=== PATIENT | female | born 1975 | race Caucasian/White ===

== ENCOUNTER → 2019-11-08 | Outpatient (CLI) | payer BC, SELFPAY ==
[2019-11-03 11:10] VITALS: BMI 25.4
[2019-11-08 12:36] LABS: Bacteria 0 SEEN /hpf (None Seen); Red Blood Cells-Urine 0 SEEN /hpf (0-5); Squamous Epithelial Cells - UA 0 SEEN /hpf (5-10); White Blood Cells 0 SEEN /hpf (0-5)
[2019-11-08 15:03] LABS: Absolute Lymphocyte Count 2.59 X10^3/uL (0.83-4.51); Absolute Neutrophil Count 8.4 X10^3/uL (2.0-7.7); Basophil# 0.06 X10^3/uL; Basophil% 0.5 % (0-1); Eosinophil# 0.22 X10^3/uL; Eosinophils% 1.9 % (0-5); Hematocrit 44.8 % (37-47); Hemoglobin 14.4 g/dL (12.0-15.0); Lymphocyte # 2.59 X10^3/ul (4.0); Lymphocyte % 21.9 % (19-41); Mean Corp Hgb Conc 32.1 g/dL (32-36); Mean Corpuscular Hgb 31.1 pg (27.0-32.0); Mean Corpuscular Volume 96.8 fL (81-99); Mean Platelet Vol. 11.5 fl (6.2-12.0); Monocyte# 0.58 X10^3/uL; Monocyte% 4.9 % (0-10); NRBC Flagged by Analyzer 0 % (0-5); Neutrophil # 8.36 X10^3/uL (2.7-7.7); Neutrophil % 70.5 % (47-70); Platelet Count 142 K/mm3 (150-450); RBC Distribution Width CV 12.5 % (11.6-14.6); RBC Distribution Width SD 44.6 fl (35.1-43.9); Red Blood Count 4.63 M/mm3 (4.2-5.4); White Blood Count 11.9 K/mm3 (4.4-11.0)
[2019-11-08 15:35] LABS: Color, Urine Yellow (Yellow); Glucose, Dipstick Normal (Normal); Ketone-Dipstick Negative (Negative); Leukocyte Esterase-Dipstick 25 /ul (Negative); Nitrite-Dipstick Negative (Negative); Occult Blood-Urine 10 /ul (Negative); Protein-Dipstick Negative (Negative); Specific Gravity, Urine 1.025 (1.002-1.030); Urine Clarity Clear (Clear); Urine Urobilinogen Normal (Normal)
[2019-11-08 15:39] LABS: Urine Bilirubin Dipstick 1 mg/dL (Negative)
[2019-11-08 15:44] LABS: Mucous, Urine 1+ /hpf (<or=2+)
[2019-11-08 16:00] LABS: HIV - WCH Non-Reactive (Nonreactive); Hepatitis B Surface Antibody Non-Reactive; Hepatitis B Surface Antigen Non-Reactive (Nonreactive); Hepatitis C Antibody Non-Reactive (Nonreactive)
[2019-11-08 17:04] LABS: Chlamydia Trachomatis by PCR Negative (Negative); Neisserai gonorrhoeae by PCR Negative (Negative); Probe Check PASS; Sample Adequacy Control PASS; Specimen Processing Control PASS
[2019-11-09 02:25] LABS: Rapid Plasmin Reagin (RPR) NONREACTIVE (NONREACTIVE)
== END | disposition home or self-care (01) ==
PROVIDERS: PCP Family Medicine; Referring Provider Family Medicine; Visit Provider Family Medicine
DX: Z11.3 Encounter for screening for infections with a predominantly sexual mode of transmission (principal); Z72.0 Tobacco use
CPT/HCPCS: 36415; 81001; 85025; 86592; 86703; 86706; 86803; 87340; 87491; 87591

== ENCOUNTER → 2019-12-21 | Outpatient (CLI) | payer BC, SELFPAY ==
[2019-11-03 11:10] VITALS: BMI 25.4
--- NOTE | 2019-12-21 15:08 | PFTCOMP ---
COMPLETE PULMONARY FUNCTION TEST INTERPRETATION Brief HPI: Patient is a 44 year old female, currently under the care of Dr. Coronado, who presents to [facility] for complete pulmonary function tests secondary to diagnosis of tobacco abuse. Respiratory therapist reports good effort and reproducible results. Interpretation: Forced expiration spirometry shows a mild large airways obstructive ventilatory defect with an FEV1 of 89% predicted. There is no significant bronchodilator response by strict ATS criteria, but some improvement is noted. Spirograms are of good quality and plateau slowly, indicating slowly emptying areas of the lungs. The respiratory flow volume loop shows decreased expiratory flow rates at high lung volumes consistent with small airways obstruction. Lung volumes by body plethysmography show an elevated total lung capacity at 6.24 L, 127% predicted. FRC and RV are elevated out of proportion. Lung volume measurements are consistent with hyperinflation and air-trapping. Diffusion capacity by carbon monoxide is normal at 110% predicted. The airway resistance is normal. No previous pulmonary function tests were available for review. Impression: Grossly normal complete pulmonary function test with some stigmata of reversible small airways obstruction.
== END | disposition home or self-care (01) ==
LOC: PSN 09:42
PROVIDERS: PCP Family Medicine; Referring Provider Family Medicine; Visit Provider Family Medicine
DX: J45.909 Unspecified asthma, uncomplicated (principal); Z72.0 Tobacco use
CPT/HCPCS: 94060; 94726; 94729

== ENCOUNTER 2024-11-27 09:56 | Emergency (ER) | payer BC, SELFPAY ==
[2024-11-27 09:57] VITALS: BP 160/87; PULSE 94; RESP 14; TEMP 36.6; O2SAT 98; BMI 21.5
--- NOTE | 2024-11-27 10:30 | CT_ITS ---
PROCEDURE: ABDOMEN/PELVIS W IV CONT ONLY 11/27/2024 REASON FOR EXAM: DIFFUSE PAIN, N/V TECHNIQUE: ABDOMEN/PELVIS W IV CONT ONLY Coronal and Sagittal reconstruction series were provided. CONTRAST: Isovue 370 VOLUME: 99 mL One or more dose reduction techniques were used (e.g., Automated exposure control, adjustment of the mA and/or kV according to patient size, use of iterative reconstruction technique. RADIATION DOSE SUMMARY: CTDlvol: 6.94 mGy DLP: 322.25 mGycm COMPARISON: None. FINDINGS: Lung bases: Unremarkable. Liver: Focal fatty infiltration near the inferior liver edge. Gallbladder: Minimal dependent sludge or gallstones. No gallbladder wall thickening or nearby fluid. Spleen: Unremarkable. Pancreas: Unremarkable. Adrenals: Unremarkable. Kidneys: No hydronephrosis. No nephrolithiasis. Bladder: Unremarkable. Reproductive Organs: Unremarkable. Bowel: Dilated bowel loops with fluid suggestive of enterocolitis. Appendix: Unremarkable. Lymph nodes: No lymphadenopathy. Vasculature: No aortic dissection or aneurysm. Atherosclerotic calcifications. Peritoneum / Retroperitoneum: No free air or free fluid. Bones: No acute bony abnormalities. CT/Abdomen/Pelvis W IV Cont ONLY IMPRESSION: Dilated bowel loops with fluid suggestive of enterocolitis. Reading Location: [id number]
--- NOTE | 2024-11-27 10:30 | CT_ITS ---
PROCEDURE: ABDOMEN/PELVIS W IV CONT ONLY 11/27/2024 REASON FOR EXAM: DIFFUSE PAIN, N/V TECHNIQUE: ABDOMEN/PELVIS W IV CONT ONLY Coronal and Sagittal reconstruction series were provided. CONTRAST: Isovue 370 VOLUME: 99 mL One or more dose reduction techniques were used (e.g., Automated exposure control, adjustment of the mA and/or kV according to patient size, use of iterative reconstruction technique. RADIATION DOSE SUMMARY: CTDlvol: 6.94 mGy DLP: 322.25 mGycm COMPARISON: None. FINDINGS: Lung bases: Unremarkable. Liver: Focal fatty infiltration near the inferior liver edge. Gallbladder: Minimal dependent sludge or gallstones. No gallbladder wall thickening or nearby fluid. Spleen: Unremarkable. Pancreas: Unremarkable. Adrenals: Unremarkable. Kidneys: No hydronephrosis. No nephrolithiasis. Bladder: Unremarkable. Reproductive Organs: Unremarkable. Bowel: Dilated bowel loops with fluid suggestive of enterocolitis. Appendix: Unremarkable. Lymph nodes: No lymphadenopathy. Vasculature: No aortic dissection or aneurysm. Atherosclerotic calcifications. Peritoneum / Retroperitoneum: No free air or free fluid. Bones: No acute bony abnormalities. CT/Abdomen/Pelvis W IV Cont ONLY IMPRESSION: Dilated bowel loops with fluid suggestive of enterocolitis. Reading Location: [id number]
--- NOTE | 2024-11-27 10:31 | ED.VIS.GI ---
HPI HPI - GI History of Present Illness Chief Complaint: Abd Pain Informant: patient and other (urgent care physician) Narrative Narrative: 49-year-old female has been having epigastric pain for the past week along with nausea and vomiting and diarrhea. The diarrhea has been 5 or 6 times per day, mostly loose. No melanotic stools, no blood. No hematemesis. She states food makes all this worse, and makes her abdomen hurt and makes her very nauseated very quickly after eating. No lateralizing pain. Seen in urgent care and sent here, as today being the first time she has sought care for this. She states she does not have a primary care physician so she does not have any medical problems that she knows of. She states she used to be a fairly heavy drinker but does not drink very often anymore. She denies any known sick contacts. No travel out of the area or of the country recently. No recent antibiotics for anything she can recall. No urinary symptoms. Pain does not radiate; no acute back or chest pain with this. [facility] Medical History (Updated 11/27/24 @ 13:[address] Kenn Vogt MD) Back pain SOB (shortness of breath) Asthma Home Medications ?Medication ?Instructions ?Recorded ?Last Taken ?Type dicyclomine 20 mg tablet 20 mg PO Q6H PRN PRN abdominal 11/27/24 Unknown Rx discomfort #20 tabs ondansetron 8 mg disintegrating 8 mg PO Q8H PRN nausea and 11/27/24 Unknown Rx tablet vomiting #20 tabs Allergy/AdvReac Type Severity Reaction Status Date / Time No Known Allergies Allergy Verified 11/27/24 09:57 Family History Other Cancer Heart disease Surgical History History of tonsillectomy History of tubal ligation Social History Smoking Status: Current every day smoker tobacco type: cigarettes alcohol intake: current Alcohol type: other details: WEEKENDS ROS ROS ED Constitutional Constitutional ED: Reports other Details: Fevers at the beginning. ; Denies chills Eyes Eyes: Denies change in vision or diplopia ENT ENT ED: Denies rhinorrhea or sore throat Cardiovascular Cardiovascular: Denies chest pain or palpitations Respiratory/Chest Respiratory/Chest: Denies cough or dyspnea Gastrointestinal Gastrointestinal: Reports abdominal pain, diarrhea, nausea and vomiting; Denies hematemesis, hematochezia or melena Genitourinary Genitourinary ED: Denies dysuria or hematuria Musculoskeletal Musculoskeletal: Denies back pain or neck pain Integumentary Denies abscess or rash Neurologic Neurologic: Denies headache(s), paresthesias or weakness Psychiatric Psychiatric: Denies suicidal thoughts EXAM Physical Exam Const Vital Signs: 11/27/24 09:57 11/27/24 11:57 Temperature 98 F Temperature Source Temporal Pulse Rate 94 78 Respiratory Rate 14 18 Blood Pressure 160/87 H 134/74 H Blood Pressure Mean 111 94 Pulse Ox 98 98 Oxygen Delivery Method Room Air Room Air Positive well nourished and well developed General Appearance ED: well developed and NAD HEENT Reports moist mucous membranes normocephalic and atraumatic Eyes PERRL and EOMs intact bilaterally General Eye ED: Negative for scleral icterus Neck full ROM and supple Resp normal respiratory effort and clear to auscultation bilaterally Cardio regular rate, regular rhythm and no murmurs GI non-distended GI Narrative: Diffuse tenderness. No guarding or rebound. Auscultation: hyperactive bowel sounds Palpation: soft Back/Spine no CVA tenderness General Back: other FROM Extremity normal to inspection General Extremety ED: Negative for edema, pulses abnormal or tenderness General Extremity: Negative for edema or pulses abnormal Neuro oriented x3, CN's II-XII intact bilaterally and no sensory deficits noted Sensorium / Orientation: awake and alert Motor Exam: strength 5/5 throughout Psych Mood & Affect: anxious and tearful Skin no rashes or lesions noted and no wounds General Skin Exam: Negative for jaundice MDM MDM MDM Narrative Medical decision making narrative: To me, patient does not appear to be jaundiced or have scleral icterus. Labs confirm this, with a total bilirubin of 0.45. She has very slight elevations of AST and ALT without any other abnormal blood test, nor leukocytosis. This is of undetermined significance and is very nonspecific. With regards to her abdominal pain and CT, I reviewed the images and the result which I agree with, it is negative for nothing acute but shows signs of enterocolitis. This is nonspecific as I discussed with the patient. She does not have hematochezia or severe dehydration associated with very aggressive diarrhea, which argue against bacterial etiology. She also does not have any risk factors for bacterial etiology of diarrhea, so I do not think antibiotics are indicated here. No one else around her has this, arguing against a viral infection although that is not ruling it out. Inflammatory chronic disorders are not able to be ruled in or out here in the emergency department as I discussed with her. Hence, close outpatient follow-up is advised. She does not have a PCP. Social work stopped and talked with her, gave her some referral information for primary care, We will refer her to the next doctor on the unassigned list Dr. Blackman. We did discuss getting outpatient diarrhea testing to rule out infections, she understands that this would be more reliable if her doctor was following up on her but she is okay doing that in the meantime until she finds 1, and if positive for something we can certainly feel those results in the ED and treat her appropriately as an outpatient which I think would be reasonable. At this time supportive care and prescriptions, GI cocktail and dicyclomine and toradol really helped her discomfort. Lab Data Attestation: I reviewed the patient's lab results. Labs: Laboratory Results - last 24 hr 11/27/24 11/27/24 10:25 10:42 WBC 6.6 RBC 5.05 Hgb 14.7 Hct 42.6 MCV 84.4 MCH 29.1 MCHC 34.5 RDW Std Deviation 38.5 RDW Coeff of [place] 12.6 Plt Count 201 MPV 10.2 Immature Gran % (Auto) 0.200 Neut % (Auto) 57.6 Lymph % (Auto) 29.7 [place] % (Auto) 9.0 Eos % (Auto) 2.9 Baso % (Auto) 0.6 Absolute Neuts (auto) 3.8 Absolute Lymphs (auto) 1.95 Nucleated RBC % 0 PT 12.2 INR 0.9 Sodium 140 Potassium 3.5 Chloride 101 Carbon Dioxide 26.0 Anion Gap 13 BUN 6 Creatinine 0.72 Estim Creat Clear Calc 77.33 Est GFR (MDRD) Non-Af 103 BUN/Creatinine Ratio 7.9 L Glucose 103 H Calcium 9.3 Total Bilirubin 0.45 AST 66 H ALT 62 H Alkaline Phosphatase 45 Total Protein 7.0 Albumin 4.3 Globulin 2.7 Albumin/Globulin Ratio 1.6 Lipase 15 Urine Color Yellow Urine Clarity Clear Urine pH 7.0 Ur Specific [place] 1.005 Urine Protein Negative Urine Glucose (UA) Normal Urine Ketones Negative Urine Occult Blood 50 H Urine Nitrite Negative Urine Bilirubin Negative Urine Urobilinogen Normal Ur Leukocyte Esterase Negative Urine RBC 0 SEEN Urine WBC 0 SEEN Ur Squamous Epith Cells 0 SEEN Urine Bacteria 0 SEEN Urine Mucus 0 SEEN Urine Test Negative Radiography Diagnostic Testing: Clinical Impression(s) from Imaging Studies Abdomen/Pelvis CT 11/27/24 10:30 IMPRESSION: Dilated bowel loops with fluid suggestive of enterocolitis. Reading Location: [facility] Discharge Plan Triage Chief Complaint: Abd Pain ED Provider: Kenn Vogt Dx/Rx/DC Orders Clinical Impression: Gastroenteritis, Diffuse abdominal pain Instructions: Viral Gastroenteritis, ED Gastroenteritis, Noninfectious Prescriptions: New ondansetron 8 mg tablet,disintegrating 8 mg PO Q8H PRN (Reason: nausea and vomiting) Qty: 20 0RF dicyclomine 20 mg tablet 20 mg PO Q6H PRN PRN (Reason: abdominal discomfort) Qty: 20 0RF Primary Care Provider: Care Physician,No Primary Referrals: Raul Coronado MD [Med Staff - [employer] Housekeeper] - As soon as possible Print Language: Bulgarian Disposition Disposition: Home, Self Care
[2024-11-27 10:43] LABS: Hematocrit 42.6 % (37-47); Hemoglobin 14.7 g/dL (12.0-15.0); Immature Granulocytes Count 0.010 X10^3/uL (0.0-0.0); Mean Corp Hgb Conc 34.5 g/dL (32-36); Mean Corpuscular Volume 84.4 fL (81-99); Mean Platelet Vol. 10.2 fl (6.2-12.0); NRBC Flagged by Analyzer 0 % (0-5); Platelet Count 201 K/mm3 (150-450); RBC Distribution Width CV 12.6 % (11.6-14.6); RBC Distribution Width SD 38.5 fl (35.1-43.9); Red Blood Count 5.05 M/mm3 (4.2-5.4); White Blood Count 6.6 K/mm3 (4.4-11.0)
[2024-11-27 10:47] LABS: Mucous, Urine 0 SEEN /hpf (<or=2+); Red Blood Cells-Urine 0 SEEN /hpf (0-5); Squamous Epithelial Cells - UA 0 SEEN /hpf (5-10)
[2024-11-27] MEDS: Lidocaine 2% Viscous15 ML UDC 15 ML PO (10:49)
[2024-11-27] MEDS: 0.9% Normal Saline (1000mL) 1,000 ML 999 ML IV (10:50)
[2024-11-27 10:52] LABS: Prothrombin Time (Protime)PT. 12.2 SECONDS (11.7-14.9)
[2024-11-27 10:58] LABS: Color, Urine Yellow (Yellow); Glucose, Dipstick Normal (Normal); Ketone-Dipstick Negative (Negative); Leukocyte Esterase-Dipstick Negative /ul (Negative); Nitrite-Dipstick Negative (Negative); Occult Blood-Urine 50 /ul (Negative); Protein-Dipstick Negative (Negative); Specific Gravity, Urine 1.005 (1.002-1.030); Urine Bilirubin Dipstick Negative (Negative)
[2024-11-27 11:10] LABS: Internal QC Validated? YES +Cl - CLEAR BKGD; Pregnancy, Urine Negative Negative; Record Kit Lot#,Urine Preg 0000947241
[2024-11-27 11:20] LABS: AST(SGOT) 66 U/L (<=31); Alanine Aminotransfer ALT/SGPT 62 U/L (<=34); Albumin, Serum 4.3 g/dL (3.5-5.0); Alkaline Phosphatase 45 U/L (35-104); Anion Gap 13 (5-15); BUN 6 mg/dL (4-19); BUN/Creat Ratio 7.9 RATIO (10-20); Calcium,Total 9.3 mg/dL (7.6-11.0); Carbon Dioxide 26.0 mmol/L (21.0-32.0); Chloride 101 mmol/L (98-108); Estimated Creatinine Clearance 77.33 ml/min (50-250); Globulin 2.7 g/dL (2.2-4.2); Glucose 103 mg/dL (70-99); Lipase 15 U/L (13-75); Potassium 3.5 mmol/L (3.3-5.1)
[2024-11-27 11:57] VITALS: BP 134/74; PULSE 78; RESP 18; O2SAT 98
[2024-11-27 13:53] VITALS: BP 130/79; PULSE 83; RESP 18; TEMP 36.6; O2SAT 100
--- NOTE | 2024-11-27 16:28 | CM.ED ---
Social Work Reason for visit: No PCP SW entered room, introduced self to patient and explained reason for visit. Patient verified that she does not currently have a PCP. [facility] provider list given, no further needs identified at this time. Ludivina Prajapati, GREEN HOUSE MANAGER, FINISHING MACHINE TENDER
--- NOTE | 2024-11-27 16:28 | CM.ED ---
Social Work Reason for visit: No PCP SW entered room, introduced self to patient and explained reason for visit. Patient verified that she does not currently have a PCP. [facility] provider list given, no further needs identified at this time. Ludivina Prajapati, HATCHERY WORKER, ADAPTED PHYSICAL EDUCATION SPECIALIST
== END 2024-11-27 13:54 | disposition home or self-care (01) ==
PROVIDERS: Emergency Provider Emergency Medicine; Visit Provider Emergency Medicine
DX: K52.9 Noninfective gastroenteritis and colitis, unspecified (principal); R10.84 Generalized abdominal pain; F17.210 Nicotine dependence, cigarettes, uncomplicated; J45.909 Unspecified asthma, uncomplicated
CPT/HCPCS: 74177; 80053; 81001; 81025; 83690; 85025; 85610; 96361; 96374; 99283; Q9967; A4216; J2405

== ENCOUNTER → 2024-11-29 | Outpatient (CLI) | payer BC, SELFPAY | END | disposition home or self-care (01) | LOC: LABSPEC 10:24 | PROVIDERS: Referring Provider Emergency Medicine; Visit Provider Emergency Medicine | DX: K52.9 Noninfective gastroenteritis and colitis, unspecified (principal) | CPT/HCPCS: 87493; 87506 ==

== ENCOUNTER → 2024-12-01 | Outpatient (CLI) | payer BC, SELFPAY | END | disposition home or self-care (01) | LOC: LABSPEC 11:20 | DX: K52.9 Noninfective gastroenteritis and colitis, unspecified (principal) | CPT/HCPCS: 87177; 87209; 87493; 87506 ==